=== PATIENT | male | born 1995 | race Caucasian/White ===

== ENCOUNTER 2023-01-26 14:11 | Outpatient (REF) | payer BC, SELFPAY ==
[2023-01-29 15:43] LABS: Chlamydia Result Negative (Negative); GC Result Negative (Negative)
== END 2023-01-26 14:12 | disposition home or self-care (01) ==
LOC: NCHCN 14:11
PROVIDERS: Visit Provider Nurse Practitioner Family
DX: Z11.3 Encounter for screening for infections with a predominantly sexual mode of transmission (principal)
CPT/HCPCS: 87491; 87591